=== PATIENT | male | born 1990 | race Caucasian/White ===

== ENCOUNTER 2018-03-18 16:26 | Emergency (ER) | payer SELFPAY ==
[2018-03-18 16:42] VITALS: BP 129/82
--- NOTE | 2018-03-19 16:42 | ED ---
ED Suture/Wound Check - HPI Summary HPI Summary: Patient is a 27-year-old male presenting to the ED with request for suture removal to the left thumb. Sutures were placed 13 days ago at [place]. Wound appears clean, no drainage, no redness around the area. 5 sutures are intact. Denies any numbness or tingling, color temperature changes. - History Of Current Complaint Chief Complaint: EDLacSutureRecheck Stated Complaint: STITCHES REMOVED Time Seen by Provider: 03/18/18 17:02 Hx Obtained From: Patient Onset/Duration: Sudden Onset Severity: Mild Pain Intensity: 0 Pain Scale Used: 0-10 Numeric - Allergies/Home Medications Allergies/Adverse Reactions: Allergies Allergy/AdvReac Type Severity Reaction Status Date / Time No Known Allergies Allergy Verified 03/18/18 16:42 PMH/Surg Hx/FS Hx/Imm Hx Previously Healthy: Yes - Immunization History Hx Pertussis Vaccination: No Immunizations Up to Date: Unable to Obtain/Confirm Infectious Disease History: No Infectious Disease History: Denies: Traveled Outside the in Last 30 Days - Social History Occupation: Employed Full-time Lives: With Family Alcohol Use: None Hx Substance Use: No Substance Use Type: Reports: None Hx Tobacco Use: Yes Smoking Status (MU): Heavy Every Day Tobacco Smoker Review of Systems Constitutional: Negative Negative: Fever, Chills, Fatigue Negative: Palpitations, Chest Pain Negative: Shortness Of Breath, Cough Genitourinary: Negative Positive: no symptoms reported, see HPI Positive: Other - 5 sutures to the dorsum of the thumb Neurological: Negative Psychological: Normal All Other Systems Reviewed And Are Negative: Yes Physical Exam Triage Information Reviewed: Yes Vital Signs On Initial Exam: Initial Vitals Temp Pulse Resp BP Pulse Ox 99.1 F 87 16 129/82 97 03/18/18 16:40 03/18/18 16:40 03/18/18 16:40 03/18/18 16:40 03/18/18 16:40 Vital Signs Reviewed: Yes Appearance: Positive: Well-Appearing, Well-Nourished Skin: Positive: Warm, Skin Color Reflects Adequate Perfusion Head/Face: Positive: Normal Head/Face Inspection Neck: Positive: Supple, No Lymphadenopathy Respiratory/Lung Sounds: Positive: Clear to Auscultation, Breath Sounds Present Cardiovascular: Positive: RRR, Pulses are Symmetrical in both Upper and Lower Extremities Musculoskeletal: Positive: Normal, Strength/ROM Intact Neurological: Positive: Sensory/Motor Intact, Alert, Oriented to Person Place, Time, Speech Normal Psychiatric: Positive: Affect/Mood Appropriate AVPU Assessment: Alert Diagnostics - Vital Signs Vital Signs Temp Pulse Resp BP Pulse Ox 03/18/18 17:15 99.1 F 87 16 129/82 97 03/18/18 16:40 99.1 F 87 16 129/82 97 - Laboratory Lab Statement: Any lab studies that have been ordered have been reviewed, and results considered in the medical decision making process. Course/Dx - Course Course Of Treatment: 5 sutures are intact to the left dorsum of the thumb. No erythema or drainage from the area. The wound appears clean with no signs of infection. 5 sutures removed. Patient tolerated well. Antibiotic ointment and gauze wrapped. - Clinical Impression Provider Diagnoses: Visit for suture removal Discharge - Sign-Out/Discharge Documenting (check all that apply): Patient Departure - Discharge Plan Condition: Stable Disposition: HOME Patient Education Materials: Stitches Removal (ED) Referrals: No Primary Care Phys,NOPCP [Primary Care Provider] - Additional Instructions: Keep abx ointment applied x 1 day Keep covered if you are in a dirty environment - Billing Disposition and Condition Condition: STABLE Disposition: Home
== END 2018-03-18 17:15 | disposition home or self-care (01) ==
LOC: ED 16:26
DX: Z48.02 Encounter for removal of sutures (principal); F17.210 Nicotine dependence, cigarettes, uncomplicated
CPT/HCPCS: 99281